=== PATIENT | female | born 1975 | race Caucasian/White ===

== ENCOUNTER → 2016-09-26 | Day surgery (SDC) | payer MEDICARE ==
[~2016-09-26] MED LIST: BAYER ASPIRIN325 M1 PO; CELEXA PO; CERTAGEN PO; DURAGESIC100 MCG EXT; DYAZIDE 37.5/251 CAP PO; EFFEXOR75 M3 PO; FAMOTIDINE PO; FLEXERIL10 MG PO; IRON TABLETS1 TAB PO; KEPPRA1000 MG PO; KLONOPIN0.5 MG PO; LORTAB 10-5001 EACH PO; MORPHINE SULFAT30 M4 PO; NEURONTIN PO; NEXIUM PO; OXYCODONE HCL15 MG PO; PERCOCET 10/31 UDTA1 PO
--- NOTE | ~2016-09-26 | OR ---
Unit #: [id number] #: [id number] Patient: AUGUSTO LLANOS [id number] [address] [place], [place] [address] [id number] O MR#: [id number] NAME: AUGUSTO LLANOS ROOM: Date of Procedure: 09/26/2016 Admission Date: 09/26/2016 Surgeon: Darell Diez M.D. : 1975 Attending Physician: Darell Diez M.D. Primary Care Physician: Salvador Shook M.D. OPERATIVE REPORT JOB NOTE: CC: [facility] PREOPERATIVE DIAGNOSES Back pain, radiculopathy, postlumbar fusion, degenerative disk disease, spinal stenosis. POSTOPERATIVE DIAGNOSES Back pain, radiculopathy, postlumbar fusion, degenerative disk disease, spinal stenosis. PROCEDURE PERFORMED Lumbar epidural steroid injection with intravenous sedation and fluoroscopic guidance for needle localization. INDICATIONS FOR PROCEDURE The patient is a 41-year-old female, status post L4, L5, S1 fusion. She has significant adjacent level disease. She is currently not considered a surgical in nature. She has done very well 7 months ago with epidural steroids for about 5-1/2 months. The pain just recently re-flared, has become quite severe as not settle with conservative treatment. Based on good response she had in the past, pathology, and symptomatology, plan is to repeat an epidural steroid injection today. DESCRIPTION OF PROCEDURE The patient was placed in a seated position. Standard monitors were applied. 2 mg of Versed were given for sedation and anxiolysis, which were adequate. Vital signs remained stable. Sterile prep and drape then of the lumbar area was performed. The skin then at the L3-L4 level was localized with 1% lidocaine. An 18-gauge Socratic Labstead needle was then advanced via loss of resistance technique and fluoroscopic guidance in toward the epidural space. After confirming proper positioning with fluoroscopy and radiographic contrast, 80 mg of Depo-Medrol and 4 mL of 0.125% bupivacaine were deposited. The patient tolerated the procedure otherwise well and was discharged to the recovery room in stable condition. Dictated by... Darell Diez M.D. LHP/modl Unit #: [id number] #: [id number] Patient: AUGUSTO LLANOS TD: 09/26/2016 22:13 JOB #: [id number] OPERATIVE REPORT Page 1 of 1 X Darell Diez MD X PROCEDURE OPERATIVE NOTE
== END | disposition home or self-care (01) ==
LOC: CCSC 08:58
DX: M51.16 Intervertebral disc disorders with radiculopathy, lumbar region (principal); M48.06 Spinal stenosis, lumbar region; I10 Essential (primary) hypertension; F32.9 Major depressive disorder, single episode, unspecified; Z79.891 Long term (current) use of opiate analgesic; Z79.899 Other long term (current) drug therapy; Z98.1 Arthrodesis status
CPT/HCPCS: J1040; J2250

== ENCOUNTER → 2016-10-10 | Day surgery (SDC) | payer MEDICARE ==
--- NOTE | ~2016-10-10 | OR ---
Unit #: [id number] #: [id number] Patient: AUGUSTO LLANOS [id number] [address] [place], [place] [address] [id number] O MR#: [id number] NAME: AUGUSTO LLANOS ROOM: Date of Procedure: 10/10/2016 Admission Date: 10/10/2016 Surgeon: Darell Diez M.D. : 1975 Attending Physician: Darell Diez M.D. Primary Care Physician: Salvador Shook M.D. OPERATIVE REPORT PREOPERATIVE DIAGNOSES Back pain, radiculopathy, postlumbar fusion, degenerative disk disease, lumbar spinal stenosis. POSTOPERATIVE DIAGNOSES Back pain, radiculopathy, postlumbar fusion, degenerative disk disease, lumbar spinal stenosis. PROCEDURE PERFORMED Lumbar epidural steroid injection with intravenous sedation and fluoroscopic guidance for needle localization. INDICATIONS FOR PROCEDURE The patient is a 41-year-old female with return of back and left greater than right lower extremity pain. She is status post L5 through S1 fusion. She has significant adjacent level disease with degenerative disk disease and spinal stenosis. She was last treated for this with epidural steroid injections about 8 months ago and had a 75% reduction in her symptom complex for about 5 months. Based on a good partial response, return of her symptoms, pathology, and symptomatology, we are going to proceed with a repeat injection today. Injection done 2 weeks ago resulted in mild improvement, again an attempt at second injection given more substantial improvement. DESCRIPTION OF PROCEDURE The patient was placed in a seated position. Standard monitors were applied. 2 mg of Versed were given for sedation and anxiolysis, which were adequate. Vital signs remained stable. Sterile prep and drape then of the lumbar area was performed. The skin then at the L3-L4 level was localized with 1% lidocaine. An 18-gauge Spiral Geneticstead needle was then advanced via loss of resistance technique and fluoroscopic guidance in toward the epidural space. After confirming proper positioning with fluoroscopy and radiographic contrast, 80 mg of Depo-Medrol and 4 mL of 0.5% lidocaine were deposited. The patient tolerated the procedure otherwise well and was discharged to recovery room in stable condition. Dictated by... Darell Diez M.D. P/andrei Unit #: [id number] #: [id number] Patient: AUGUSTO LLANOS TD: 10/11/2016 02:30 JOB #: [id number] OPERATIVE REPORT Page 1 of 1 X Darell Diez MD X PROCEDURE OPERATIVE NOTE
== END | disposition home or self-care (01) ==
LOC: CCSC 09:27
DX: M51.16 Intervertebral disc disorders with radiculopathy, lumbar region (principal); M48.06 Spinal stenosis, lumbar region; I10 Essential (primary) hypertension; F32.9 Major depressive disorder, single episode, unspecified; Z79.891 Long term (current) use of opiate analgesic; Z79.899 Other long term (current) drug therapy; Z98.1 Arthrodesis status
CPT/HCPCS: J1040; J2250

== ENCOUNTER → 2016-10-31 | Day surgery (SDC) | payer MEDICARE ==
--- NOTE | ~2016-10-31 | OR ---
Unit #: [id number] #: [id number] Patient: AUGUSTO LLANOS [id number] [address] [place], [place] [address] [id number] O MR#: [id number] NAME: AUGUSTO LLANOS ROOM: Date of Procedure: 10/31/2016 Admission Date: 10/31/2016 Surgeon: Darell Diez M.D. : 1975 Attending Physician: Darell Diez M.D. Referring Physician: Darell Diez M.D. Primary Care Physician: Salvador Shook M.D. OPERATIVE REPORT PREOPERATIVE DIAGNOSES Back pain, radiculopathy, postlumbar fusion, spinal stenosis, degenerative lumbar disk disease. POSTOPERATIVE DIAGNOSES Back pain, radiculopathy, postlumbar fusion, spinal stenosis, degenerative lumbar disk disease. PROCEDURE PERFORMED Lumbar epidural steroid injection with intravenous sedation and fluoroscopic guidance for needle localization. INDICATIONS FOR PROCEDURE The patient is a 41-year-old female, who had return and worsening back and left lower extremity pain. She is status post fusion at L4 through S1. She has known adjacent level disease, which is felt to be the cause of this symptomatic change. The patient has had 2 epidural steroid injections done in last month and a half or so and has gotten additive definite improvement of her symptom complex. She continues to have pain that is hard than was at its baseline, which was treated medically, so plan was trial of final injection at this point. We will follow the patient up back at the pain center to determine other treatment issues or options. DESCRIPTION OF PROCEDURE The patient was placed in the seated position. Standard monitors were applied. 2 mg of Versed were given for sedation and anxiolysis, which were adequate. Vital signs remained stable. Sterile prep and drape then of the lumbar area was performed. The skin at the L3-L4 level was localized with 1% lidocaine. An 18-gauge SweetSpot WiF[employer] needle was then advanced via loss of resistance technique and fluoroscopic guidance in toward the epidural space. After confirming proper positioning with fluoroscopy and radiographic contrast, 80 mg of Depo-Medrol and 4 mL of 0.125% bupivacaine were deposited. The patient tolerated the procedure otherwise well and was discharged to the recovery room in stable condition. Dictated by... Darell Diez M.D. LHP/modl Unit #: [id number] #: [id number] Patient: AUGUSTO LLANOS TD: 10/31/2016 15:32 JOB #: [id number] OPERATIVE REPORT Page 1 of 1 X Darell Diez MD X PROCEDURE OPERATIVE NOTE
== END | disposition home or self-care (01) ==
LOC: CCSC 09:25
DX: M51.16 Intervertebral disc disorders with radiculopathy, lumbar region (principal); M48.06 Spinal stenosis, lumbar region; Z98.1 Arthrodesis status
CPT/HCPCS: J1040; J2250